=== PATIENT | female | born 1950 | race Caucasian/White ===

== ENCOUNTER 2021-10-24 14:10 | Inpatient (IN) | payer MEDICARE, OTHER ==
[~2021-10-24] VITALS: Ht 157.5 cm; Wt 46.8 kg
--- NOTE | 2021-10-24 17:00 | NUR ---
Transfered from [facility]. Pt c/o pain when lifting head up. Prefers the neutral position. She became aggitated when I was standing next to her. "I don't like people standing over me."
[2021-10-24 17:31] LABS: BASOPHILS % (AUTO) 0.4 % (0-1); EOSINOPHILS # (AUTO) 0.1 X10'3 (0-0.9); EOSINOPHILS % (AUTO) 1.7 % (0-6); HEMOGLOBIN 13.7 g/dl (12.0-16.0); LYMPHOCYTES # (AUTO) 3.8 X10'3 (1.1-4.8); LYMPHOCYTES % (AUTO) 43.6 % (21-51); MEAN CORPUSCULAR HEMOGLOBIN 29.6 PG (27.0-31.0); MEAN CORPUSCULAR HGB CONC 34.2 g/dL (33.0-36.5); MEAN CORPUSCULAR VOLUME 86.5 FL (78-98); MEAN PLATELET VOLUME 8.1 FL (7.4-10.4); MONOCYTES # (AUTO) 0.5 X10'3 (0-0.9); MONOCYTES % (AUTO) 5.8 % (2-12); NEUTROPHILS # (AUTO) 4.2 X10'3 (1.8-7.7); NEUTROPHILS % (AUTO) 48.5 % (42-75); PLATELET COUNT 286 X10'3 (140-440); RED BLOOD COUNT 4.63 X10'6 (4.20-5.60); RED CELL DISTRIBUTION WIDTH 13.6 % (11.5-14.5); WHITE BLOOD COUNT 8.6 X10'3 (4.5-11.0)
[2021-10-24 17:43] LABS: ALANINE AMINOTRANSFERASE 16 U/L (12-78); ALBUMIN 4.1 G/DL (3.4-5.0); ALBUMIN/GLOBULIN RATIO 1.3 (1.1-1.5); ALKALINE PHOSPHATASE 88 IU/L (46-116); ANION GAP 8 (8-16); ASPARTATE AMINO TRANSFERASE 13 U/L (10-37); BILIRUBIN,TOTAL 0.2 MG/DL (0.1-1.0); BLOOD UREA NITROGEN 13 MG/DL (7-18); BUN/CREATININE RATIO 19.1 (6.6-38.0); CALCIUM 9.5 MG/DL (8.5-10.1); CHLORIDE 103 MMOL/L (99-107); CREATININE 0.68 MG/DL (0.40-0.90); GLUCOSE 127 MG/DL (70-104); POTASSIUM 3.7 MMOL/L (3.5-5.1); SODIUM 139 MMOL/L (135-145); TOTAL CARBON DIOXIDE 28.1 MMOL/L (24-32); TOTAL PROTEIN 7.3 G/DL (6.4-8.2); eGFR 86 ML/MIN
[2021-10-24] MEDS ORDERED: iohexol 350MG/ML 100ml bottle IV ONE ×2 (17:45→22:34)
[2021-10-24] MEDS ORDERED: aspirin 325mg tablet PO ONE (18:40)
[2021-10-24 19:04] LABS: CLARITY,URINE CLEAR (Clear); COLOR,URINE YELLOW (Yellow); GLUCOSE, URINE NEGATIVE (Neg); KETONES,URINE NEGATIVE (Neg); LEUKOCYTE ESTERASE ,URINE NEGATIVE (Neg); NITRITES, URINE NEGATIVE (Neg); OCCULT BLOOD,URINE NEGATIVE (Neg); PH,URINE 5.5 (4.8-8.0); PROTEIN,URINE NEGATIVE (Neg); UROBILINOGEN,URINE 0.2 E.U/dL (0.2-1.0)
[2021-10-24 19:09] LABS: UA COLLECTION TYPE NON-SPECIFIED
[2021-10-24] MEDS ORDERED: potassium CL 10mEq/100ml bag 100 ML IV PRN (21:55)
[2021-10-24] MEDS ORDERED: magnesium hydroxide 30ml (MOM) UD suspension PO PRN (21:55)
[2021-10-24] MEDS ORDERED: magnesium 4gm in 100ml NS 100 ML IV PRN (21:55)
[2021-10-24] MEDS ORDERED: morphine 2 MG/ML inj. syringe IV PRN ×2 (21:55)
[2021-10-24] MEDS ORDERED: POTASSIUM BICARB 20meq eff tab 20 MEQ TABLET.EFF PO PRN ×2 (21:55)
[2021-10-24] MEDS ORDERED: ondansetron/PF 4mg/2ml inj IV PRN (21:55)
[2021-10-24] MEDS ORDERED: magnesium Cl slow-release 64mg tablet PO PRN (21:55)
[2021-10-24] MEDS ORDERED: mag hydrox/Alum hydrox/simeth 30ml oral suspension PO PRN (21:55)
[2021-10-24] MEDS ORDERED: PERFLUTREN PROTEIN-A MICROSPHR (Optison) 0.22 MG/ML 3ML VIAL IV ONE (21:55)
[2021-10-24] MEDS ORDERED: acetaminophen 325mg tablet PO PRN ×2 (21:55)
[2021-10-24] MEDS ORDERED: magnesium 2GM in 50ml NS 50 ML IV PRN (21:55)
[2021-10-24] MEDS: normal saline 1000ml 1,000 ML IV SCH (21:55)
[2021-10-24] MEDS ORDERED: HYDROcodone/acetaminophen 10/325mg tab PO PRN (21:55)
[2021-10-24] MEDS ORDERED: bisacodyl 10mg suppository rectal RC PRN (21:55)
[2021-10-24] MEDS ORDERED: ondansetron 4mg rapidly disintigrating tab PO PRN (21:55)
[2021-10-24] MEDS: nicotine 14mg patch - 24hr TD SCH (21:55)
[2021-10-24 22:28] LABS: MAGNESIUM 1.9 MG/DL (1.5-2.4)
[2021-10-24] MEDS ORDERED: INSU300I SQ (23:32)
[2021-10-24] MEDS ORDERED: GLIM2TAB6 PO (23:32)
[2021-10-24] MEDS ORDERED: CLOP75TA34 PO (23:32)
[2021-10-24] MEDS ORDERED: ROSU5TAB12 PO (23:32)
[2021-10-24] MEDS ORDERED: TRAM50TA2 PO (23:32)
[2021-10-24] MEDS ORDERED: LOSA25TA41 PO (23:32)
[2021-10-24 23:38] LABS: APTT 28 SECONDS (22-32)
[2021-10-24] MEDS: temazepam 15mg capsule PO PRN (23:49)
[2021-10-24] MEDS: HYDROcodone/acetaminophen 5mg/325mg tablet PO PRN (23:49)
[2021-10-25] MEDS ORDERED: traMADol 50MG tablet PO PRN
--- NOTE | 2021-10-25 06:56 | NUR ---
Patient in room ED 8. I have received report from Glenna in the ER and had the opportunity to ask questions and assume patient care.
[2021-10-25] MEDS: nicotine 14mg patch - 24hr TD SCH (08:00)
[2021-10-25] MEDS ORDERED: non-formulary drug (Rosuvastatin Calcium 1 TAB) PO SCH (08:00)
[2021-10-25] MEDS: K and/or MAG REPLACEMENT MC SCH ×2 (08:00→20:00)
[2021-10-25 08:30] VITALS: BP 133/71
[2021-10-25 09:01] LABS: BASOPHILS % (AUTO) 0.5 % (0-1); EOSINOPHILS # (AUTO) 0.3 X10'3 (0-0.9); EOSINOPHILS % (AUTO) 4.4 % (0-6); HEMATOCRIT 38.1 % (35.0-45.0); HEMOGLOBIN 12.8 g/dl (12.0-16.0); LYMPHOCYTES # (AUTO) 2.9 X10'3 (1.1-4.8); LYMPHOCYTES % (AUTO) 44.2 % (21-51); MEAN CORPUSCULAR HEMOGLOBIN 28.9 PG (27.0-31.0); MEAN CORPUSCULAR HGB CONC 33.6 g/dL (33.0-36.5); MEAN CORPUSCULAR VOLUME 85.9 FL (78-98); MEAN PLATELET VOLUME 8.2 FL (7.4-10.4); MONOCYTES # (AUTO) 0.4 X10'3 (0-0.9); MONOCYTES % (AUTO) 5.4 % (2-12); NEUTROPHILS % (AUTO) 45.5 % (42-75); PLATELET COUNT 268 X10'3 (140-440); RED BLOOD COUNT 4.44 X10'6 (4.20-5.60); RED CELL DISTRIBUTION WIDTH 13.3 % (11.5-14.5); WHITE BLOOD COUNT 6.7 X10'3 (4.5-11.0)
[2021-10-25] MEDS: docusate sod 100mg capsule PO SCH ×2 (09:10→20:03)
[2021-10-25] MEDS: aspirin 81mg, enteric-coated 1 TAB TABLET.DR PO SCH (09:11)
[2021-10-25] MEDS: atorvastatin 20mg tablet PO SCH (09:11)
[2021-10-25] MEDS: losartan 25mg tablet PO SCH (09:12)
[2021-10-25] MEDS: clopidogrel 75mg tablet PO SCH (09:12)
[2021-10-25 09:23] LABS: ALANINE AMINOTRANSFERASE 14 U/L (12-78); ALBUMIN 3.5 G/DL (3.4-5.0); ALBUMIN/GLOBULIN RATIO 1.1 (1.1-1.5); ALKALINE PHOSPHATASE 77 IU/L (46-116); ANION GAP 7 (8-16); ASPARTATE AMINO TRANSFERASE 15 U/L (10-37); BILIRUBIN,TOTAL 0.3 MG/DL (0.1-1.0); BLOOD UREA NITROGEN 14 MG/DL (7-18); CALCIUM 9.1 MG/DL (8.5-10.1); CHLORIDE 105 MMOL/L (99-107); GLUCOSE 99 MG/DL (70-104); MAGNESIUM 1.9 MG/DL (1.5-2.4); PHOSPHORUS 3.6 MG/DL (2.3-4.5); POTASSIUM 3.6 MMOL/L (3.5-5.1); SODIUM 141 MMOL/L (135-145); TOTAL CARBON DIOXIDE 28.6 MMOL/L (24-32); TOTAL PROTEIN 6.6 G/DL (6.4-8.2); eGFR 83 ML/MIN
[2021-10-25] MEDS: insulin glargine (Lantus) pen - multi-dose SQ SCH (09:46)
[2021-10-25] MEDS: HYDROcodone/acetaminophen 5mg/325mg tablet PO PRN ×3 (10:23→18:49)
[2021-10-25] MEDS: normal saline 1000ml 1,000 ML IV SCH (12:13)
[2021-10-25 13:47] LABS: CHOL/HDL RATIO 4.3 (0.00-4.99); CHOLESTEROL 233 MG/DL (0-200); HDL CHOLESTEROL 54 MG/DL (35-60); LDL CHOLESTEROL 145 MG/DL (50-100); TRIGLYCERIDES 161 MG/DL (20-135)
--- NOTE | 2021-10-25 17:01 | NUR ---
Stroke education has been provided using verbal teaching and handout. All patient's questions have been answered.
[2021-10-25] MEDS ORDERED: iohexol 350MG/ML 100ml bottle IV ONE (17:27)
--- NOTE | 2021-10-25 18:36 | NUR ---
Problems reprioritized. Patient report given, questions answered & plan of care reviewed with AARON Paulino.
--- NOTE | 2021-10-25 18:40 | NUR ---
Patient in room ORTHO 4015. I have received report from ROGE WALKER and had the opportunity to ask questions and assume patient care.
[2021-10-25 20:00] VITALS: BP 136/61
[2021-10-25] MEDS: temazepam 15mg capsule PO PRN (20:03)
[2021-10-26] VITALS: BP 144/63
[2021-10-26] MEDS: normal saline 1000ml 1,000 ML IV SCH (03:07)
[2021-10-26] MEDS: HYDROcodone/acetaminophen 5mg/325mg tablet PO PRN ×3 (03:09→12:27)
[2021-10-26 04:00] VITALS: BP 139/56
[2021-10-26 05:58] LABS: BASOPHILS % (AUTO) 0.6 % (0-1); EOSINOPHILS # (AUTO) 0.3 X10'3 (0-0.9); EOSINOPHILS % (AUTO) 4.4 % (0-6); HEMATOCRIT 36.8 % (35.0-45.0); HEMOGLOBIN 12.7 g/dl (12.0-16.0); LYMPHOCYTES # (AUTO) 3.2 X10'3 (1.1-4.8); LYMPHOCYTES % (AUTO) 46.7 % (21-51); MEAN CORPUSCULAR HEMOGLOBIN 29.5 PG (27.0-31.0); MEAN CORPUSCULAR HGB CONC 34.5 g/dL (33.0-36.5); MEAN CORPUSCULAR VOLUME 85.7 FL (78-98); MEAN PLATELET VOLUME 8.5 FL (7.4-10.4); MONOCYTES # (AUTO) 0.4 X10'3 (0-0.9); MONOCYTES % (AUTO) 5.9 % (2-12); NEUTROPHILS # (AUTO) 2.9 X10'3 (1.8-7.7); NEUTROPHILS % (AUTO) 42.4 % (42-75); PLATELET COUNT 260 X10'3 (140-440); RED CELL DISTRIBUTION WIDTH 13.6 % (11.5-14.5); WHITE BLOOD COUNT 6.9 X10'3 (4.5-11.0)
[2021-10-26 06:04] LABS: ALANINE AMINOTRANSFERASE 13 U/L (12-78); ALBUMIN 3.3 G/DL (3.4-5.0); ALBUMIN/GLOBULIN RATIO 1.1 (1.1-1.5); ALKALINE PHOSPHATASE 76 IU/L (46-116); ANION GAP 9 (8-16); ASPARTATE AMINO TRANSFERASE 12 U/L (10-37); BILIRUBIN,TOTAL 0.2 MG/DL (0.1-1.0); BLOOD UREA NITROGEN 15 MG/DL (7-18); CALCIUM 9.2 MG/DL (8.5-10.1); CHLORIDE 108 MMOL/L (99-107); CREATININE 0.75 MG/DL (0.40-0.90); GLUCOSE 91 MG/DL (70-104); PHOSPHORUS 4.1 MG/DL (2.3-4.5); POTASSIUM 3.8 MMOL/L (3.5-5.1); SODIUM 143 MMOL/L (135-145); TOTAL CARBON DIOXIDE 26.3 MMOL/L (24-32); TOTAL PROTEIN 6.3 G/DL (6.4-8.2); eGFR 77 ML/MIN
--- NOTE | 2021-10-26 06:35 | NUR ---
Problems reprioritized. Patient report given, questions answered & plan of care reviewed with ERNESTINA WALKER.
[2021-10-26] MEDS: K and/or MAG REPLACEMENT MC SCH (08:00)
[2021-10-26] MEDS: nicotine 14mg patch - 24hr TD SCH (08:00)
[2021-10-26] MEDS: clopidogrel 75mg tablet PO SCH (08:05)
[2021-10-26] MEDS: atorvastatin 20mg tablet PO SCH (08:05)
[2021-10-26] MEDS: aspirin 81mg, enteric-coated 1 TAB TABLET.DR PO SCH (08:05)
[2021-10-26] MEDS: docusate sod 100mg capsule PO SCH (08:05)
[2021-10-26] MEDS: losartan 25mg tablet PO SCH (08:07)
--- NOTE | 2021-10-26 08:15 | NUR ---
Malnutrition consult: Pt admitted w/ CVA and has trouble finding words per MD note. Pt reports 2-13lb wt loss per MST. No wt hx in EMR though pt appears WD/WN per MD note. Currently on Heart Healthy diet w/ avg intake 71% of first 3 meals. Possible that pt maintains low body weight given current PO trends. No edema noted. At this time pt does not meet minimum criteria for malnutrition. Addendum: 10/26/21 at [address] Amended: Links added.
[2021-10-26] MEDS: insulin glargine (Lantus) pen - multi-dose SQ SCH (08:22)
[2021-10-26 10:00] VITALS: BP 150/49
--- NOTE | 2021-10-26 12:48 | NUR ---
PAGER ID: [phone] MESSAGE: [id number] Kyra Koenig ok to [facility]. [place] not done Wednesday. Do we need it? or ok to f/u pmd? ERNESTINA [id number]
[2021-10-26] MEDS ORDERED: NICO-631 TD (13:00)
[2021-10-26] MEDS ORDERED: ASPI-1071 PO (13:00)
[2021-10-26] MEDS ORDERED: ATOR20TA66 PO (13:00)
== END 2021-10-26 15:00 | disposition home or self-care (01) | DRG 65 ==
LOC: ER 14:11 → ED HOLD 22:00 → ORTHO 4S 10-25 07:10
PROVIDERS: ADMIT Family Medicine; ATTEND Internal Medicine
PROC: B3251ZZ Computerized Tomography (CT Scan) of Bilateral Common Carotid Arteries using Low Osmolar Contrast (ICD-10-PCS; principal; 2021-10-24)
PROC: B32G1ZZ Computerized Tomography (CT Scan) of Bilateral Vertebral Arteries using Low Osmolar Contrast (ICD-10-PCS; 2021-10-24)
PROC: B32R1ZZ Computerized Tomography (CT Scan) of Intracranial Arteries using Low Osmolar Contrast (ICD-10-PCS; 2021-10-24)
PROC: B3281ZZ Computerized Tomography (CT Scan) of Bilateral Internal Carotid Arteries using Low Osmolar Contrast (ICD-10-PCS; 2021-10-24)
PROC: BW241ZZ Computerized Tomography (CT Scan) of Chest and Abdomen using Low Osmolar Contrast (ICD-10-PCS; 2021-10-25)
DX: I63.233 Cerebral infarction due to unspecified occlusion or stenosis of bilateral carotid arteries (principal); Z68.1 Body mass index [BMI] 19.9 or less, adult; E78.00 Pure hypercholesterolemia, unspecified; R03.0 Elevated blood-pressure reading, without diagnosis of hypertension; R63.4 Abnormal weight loss; F17.210 Nicotine dependence, cigarettes, uncomplicated; Z86.73 Personal history of transient ischemic attack (TIA), and cerebral infarction without residual deficits; Z90.710 Acquired absence of both cervix and uterus; Z71.6 Tobacco abuse counseling
CPT/HCPCS: 36415; 70450; 70496; 70498; 70551; 71045; 71260; 80053; 80061; 81003; 82948; 83735; 84100; 84443; 85025; 85610; 85730; 87081; 93005; 93306; 97161; 99285; G0378; J1815; J3490; J7030; Q9967

== ENCOUNTER 2022-01-07 07:50 | Inpatient (IN) | payer MEDICARE, OTHER ==
[2021-12-29 15:14] LABS: CLARITY,URINE CLEAR (Clear); COLOR,URINE YELLOW (Yellow); GLUCOSE, URINE NEGATIVE (Neg); KETONES,URINE NEGATIVE (Neg); LEUKOCYTE ESTERASE ,URINE NEGATIVE (Neg); NITRITES, URINE NEGATIVE (Neg); OCCULT BLOOD,URINE NEGATIVE (Neg); PROTEIN,URINE NEGATIVE (Neg); UROBILINOGEN,URINE 0.2 E.U/dL (0.2-1.0)
[2021-12-29 15:17] LABS: UA COLLECTION TYPE NON-SPECIFIED
[2022-01-07] VITALS (22 sets, daily range): BP systolic 102–175; BP diastolic 38–68
[~2022-01-07] VITALS: Ht 157.5 cm; Wt 47.5 kg
[~2022-01-07 07:50] MED LIST: ASPI81TA30 PO; CLOP75TA34 PO; GLIM2TAB6 PO; HYDR-3964 PO; INSU300I SQ; LOSA25TA41 PO; ROSU5TAB12 PO; ceFAZolin inj. 2,000 MG in dextrose 5%-water 100 ML IV ONE; famotidine 20mg tablet PO ONE; nitroPRUSSIDE (NIPRIDE) (200MCG/ML) 100ML Drip IV SCH; phenylephrine inj 50 MG in normal saline 250ml IV solN IV SCH; ringers solution, lacted 1,000 ML IV SCH
[2022-01-07] MEDS ORDERED: LIDOcaine 1% 30ml preserv. free vial ONE (10:57)
[2022-01-07] MEDS ORDERED: heparin 10,000 units/1 ML INJ ONE (10:58)
[2022-01-07] MEDS ORDERED: fentaNYL/PF 50MCG/1 ML 2ML syringe ONE ×2 (11:08→11:54)
[2022-01-07] MEDS ORDERED: sevoflurane 250ml liquid IH ONE (11:17)
[2022-01-07] MEDS ORDERED: labetalol 20mg/4ml (5mg/ml) syringe IV ONE (11:17)
[2022-01-07] MEDS ORDERED: sugammadex 200mg/2ml injection IV ONE (12:50)
[2022-01-07] MEDS ORDERED: rocuronium 10mg/ml inj IV ONE (12:50)
[2022-01-07] MEDS ORDERED: ondansetron/PF 4mg/2ml inj ONE (12:50)
[2022-01-07] MEDS ORDERED: dexamethasone sod phosphate 4mg/ml inj. ONE (12:50)
[2022-01-07] MEDS ORDERED: propofol inj 20 ML IV ONE (12:50)
[2022-01-07] MEDS ORDERED: LIDOcaine 2% (20mg/ml) 5ml vial ONE (12:50)
--- NOTE | 2022-01-07 13:30 | NUR ---
Received from OR via ICU BED, accompanied by Anesthesiologist BONG and report given by Anesthesiolgist. PATIENT WITH 20GPIV IN RIGHT UE RUNNING LR AT 100. ART LINE IN RIGHT UE WELL. PATIENT WITH 10LMASK ON WITH 99% SATURATIONS. SCDS DONNED UPON ARRIVAL AND PUSH PULLS COMPOUNDER FLAVORINGS ALL EQUAL AT THIS TIME. TONGUE MIDLINE. PATIENT WIT PAIN AT THIS TIME AND MEDICATED BY ANESTHESIA. WILL CONTINUE TO ASSESS AND TREAT FOR PAIN AND BP. Addendum: 01/07/22 at 1337 by Lul Thibodeaux RN, RN Amended: Links added.
[2022-01-07] MEDS ORDERED: proCHLORperazine 10 MG/2 ml inj IV PRN (13:35)
[2022-01-07] MEDS ORDERED: meperidine/PF 25mg/ml syringe IV PRN ×3 (13:35)
[2022-01-07] MEDS ORDERED: morphine 2 MG/ML inj. syringe IV PRN (13:35)
[2022-01-07] MEDS ORDERED: ringers solution, lacted 1,000 ML IV SCH (13:35)
[2022-01-07] MEDS ORDERED: ondansetron/PF 4mg/2ml inj IV PRN (13:35)
[2022-01-07] MEDS: morphine 4 MG/ML inj SYRINge IV PRN ×2 (13:48→14:19)
--- NOTE | 2022-01-07 15:14 | NUR ---
ALL DC CRITERIA FOR TRANSFER TO THE ICU HAS BEEN MET. VSS. PAIN AT A TOLERABLE LEVEL. 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 SAME WHEN PATIENT ARRIVED. SPEECH IS CLEAR. RN PRESENT TO ACCEPT PATIENT AND ASSIST IN SET UP. 2 BAGS PLACED IN PATIENT ROOM 2011. CARE TURNED OVER. Addendum: 01/07/22 at 1525 by Lul Alonso - AARON RN Amended: Links added.
--- NOTE | 2022-01-07 15:30 | NUR ---
received report from Lul WALKER, neuro checks unchanged and compared to PACU nurses report, belongings noted and placed in bedside drawer
[2022-01-07] MEDS: HYDROcodone/acetaminophen 5mg/325mg tablet PO PRN ×2 (16:12→21:49)
--- NOTE | 2022-01-07 17:17 | NUR ---
patient is complaining of not feeling right, stated that her tongue feels swollen, neuro checks are un changed from previous hour, Called Dr Mcneal [phone] spoke to him regards to patients complaints, reviewed neuro check with him. He does not feel the need to have a CT done, he will come by and evaluate patient
[2022-01-07] MEDS ORDERED: heparin 10,000 units/1 ML INJ IV ONE (17:25)
[2022-01-07] MEDS ORDERED: LORazepam 2 mg/ml vial IM ONE (17:25)
--- NOTE | 2022-01-07 17:30 | NUR ---
Dr. Mcneal bedside, evaluated patient agrees that she is word searching a little bit, stated that she is a very anxious women and had a panic attack prior to surgery. Ordered a one time dose of .5mg ativan and a one time dose of 5000 heparin IV. no other new orders
--- NOTE | 2022-01-07 18:30 | NUR ---
received report ans assumed care of patient. patient lying in bed semi wilkins, some broth on blanket. appears anxious. changed gown and blankets to reassure patient. helped to find a movie to watch. appears more settled. VSS, no sign of distress
[2022-01-07] MEDS: insulin glargine (Lantus) pen - multi-dose SQ SCH (20:55)
--- NOTE | 2022-01-07 21:00 | NUR ---
blood glucose 246, home dose of medication, 20 units glargine insulin, given per order
--- NOTE | 2022-01-07 21:25 | NUR ---
Voided 1st time, 350mls
[2022-01-08] VITALS (14 sets, daily range): BP systolic 105–142; BP diastolic 36–58
[2022-01-08] MEDS: HYDROcodone/acetaminophen 5mg/325mg tablet PO PRN ×2 (02:32→07:11)
--- NOTE | 2022-01-08 02:54 | NUR ---
void 2nd, 350 mls
[2022-01-08 02:55] LABS: BASOPHILS % (AUTO) 0.3 % (0-1); EOSINOPHILS % (AUTO) 0.1 % (0-6); HEMATOCRIT 31.9 % (35.0-45.0); HEMOGLOBIN 10.7 g/dl (12.0-16.0); LYMPHOCYTES # (AUTO) 3.2 X10'3 (1.1-4.8); LYMPHOCYTES % (AUTO) 24.3 % (21-51); MEAN CORPUSCULAR HEMOGLOBIN 29.4 PG (27.0-31.0); MEAN CORPUSCULAR HGB CONC 33.6 g/dL (33.0-36.5); MEAN CORPUSCULAR VOLUME 87.6 FL (78-98); MONOCYTES # (AUTO) 0.6 X10'3 (0-0.9); MONOCYTES % (AUTO) 4.6 % (2-12); NEUTROPHILS # (AUTO) 9.2 X10'3 (1.8-7.7); NEUTROPHILS % (AUTO) 70.7 % (42-75); PLATELET COUNT 235 X10'3 (140-440); RED BLOOD COUNT 3.65 X10'6 (4.20-5.60); RED CELL DISTRIBUTION WIDTH 13.6 % (11.5-14.5); WHITE BLOOD COUNT 13.1 X10'3 (4.5-11.0)
[2022-01-08 03:08] LABS: ALBUMIN 3.3 G/DL (3.4-5.0); ANION GAP 16 (8-16); BLOOD UREA NITROGEN 13 MG/DL (7-18); BUN/CREATININE RATIO 16.3 (6.6-38.0); CALCIUM 9.1 MG/DL (8.5-10.1); CHLORIDE 105 MMOL/L (99-107); GLUCOSE 159 MG/DL (70-104); POTASSIUM 4.2 MMOL/L (3.5-5.1); SODIUM 142 MMOL/L (135-145); TOTAL CARBON DIOXIDE 21.4 MMOL/L (24-32); eGFR 71 ML/MIN
[2022-01-08] MEDS: atorvastatin 20mg tablet PO SCH (07:10)
[2022-01-08] MEDS: glimepiride 1 MG tablet PO SCH (07:10)
[2022-01-08] MEDS: clopidogrel 75mg tablet PO SCH (07:11)
[2022-01-08] MEDS: aspirin 81mg tab.chew PO SCH (07:11)
[2022-01-08] MEDS: losartan 25mg tablet PO SCH ×2 (07:12→09:47)
[2022-01-08] MEDS: HYDROcodone/acetaminophen 10/325mg tab PO PRN ×3 (09:49→20:05)
[2022-01-08] MEDS: insulin glargine (Lantus) pen - multi-dose SQ SCH (23:35)
[2022-01-09] MEDS: HYDROcodone/acetaminophen 10/325mg tab PO PRN ×4 (00:07→12:52)
[2022-01-09 06:00] VITALS: BP 146/72
--- NOTE | 2022-01-09 06:25 | NUR ---
Patient in room [facility] 355. I have received report from Pat and had the opportunity to ask questions and assume patient care.
[2022-01-09] MEDS: clopidogrel 75mg tablet PO SCH (08:51)
[2022-01-09] MEDS: glimepiride 1 MG tablet PO SCH (08:51)
[2022-01-09] MEDS: aspirin 81mg tab.chew PO SCH (08:51)
[2022-01-09] MEDS: atorvastatin 20mg tablet PO SCH (08:51)
[2022-01-09] MEDS: losartan 25mg tablet PO SCH (08:52)
[2022-01-09 10:00] VITALS: BP 159/41
--- NOTE | 2022-01-09 13:40 | NUR ---
Reviewed discharge instructions with pt. Pt verbalized understanding. Pt is alert. oriented and expresses a readiness to discharge home. Pt dressed herself and was wheeled downstairs to be driven home by a friend. All of patient's belongings were kept at bedside and went with pt at discharge.
== END 2022-01-09 13:21 | disposition home or self-care (01) | DRG 39 ==
LOC: PAS IN 07:50 → CICU 2S 15:02 → SUR 3N 01-08 15:11
PROVIDERS: ADMIT Surgery; ATTEND Surgery
PROC: 03UL0KZ Supplement Left Internal Carotid Artery with Nonautologous Tissue Substitute, Open Approach (ICD-10-PCS; 2022-01-07)
PROC: 03CL0ZZ Extirpation of Matter from Left Internal Carotid Artery, Open Approach (ICD-10-PCS; principal; 2022-01-07 11:17)
DX: I65.22 Occlusion and stenosis of left carotid artery (principal); F41.0 Panic disorder [episodic paroxysmal anxiety]; Z86.73 Personal history of transient ischemic attack (TIA), and cerebral infarction without residual deficits
CPT/HCPCS: 36415; 70498; 80048; 81003; 82948; 85025; 86885; 86900; 86901; 87081; 95813; 95816; A4618; A6258; A6449; A7000; C1768; G0378; J0690; J1100; J1644; J1815; J2060; J2175; J2270; J2370; J2405; J2704; J3010; J3490; J7040; J7050; J7060; J7120